=== PATIENT | male | born 1980 ===

== ENCOUNTER 2018-06-11 05:44 | Day surgery (SDC) | payer OTHER ==
[2018-06-11] MEDS ORDERED: Propofol 10 mg/ml Inj (20 ML) ONE (07:46)
[2018-06-11] MEDS ORDERED: Midazolam 2 MG/2 ML VIAL ONE (07:46)
[2018-06-11] MEDS ORDERED: Succinylcholine Chloride 20 mg/ml Syr (5 ml) IV ONE (07:47)
[2018-06-11] MEDS ORDERED: ceFAZolin IV 1 gm in Dextrose 1 GM/50 ML BAG IVPB ONE (07:48)
[2018-06-11] MEDS ORDERED: Lidocaine/Epinephrine 1% 1:100000 10 ML IJ ONE (07:48)
[2018-06-11] MEDS ORDERED: Oxymetazoline 0.05% Nasal Spray (30 ml) NS ONE (07:48)
[2018-06-11] MEDS ORDERED: EPINEPHrine 1:1000 Nasal Sol(30mL) ONE (07:49)
[2018-06-11] MEDS ORDERED: White Petrolatum/Mineral Oil Ophth Oint(3.5 gm) ONE (07:49)
[2018-06-11] MEDS ORDERED: Neostigmine Methylsulfate 3mg/3ml Syringe IV ONE (08:31)
[2018-06-11] MEDS ORDERED: Atropine 0.4 mg/ml Inj (1 mL) ONE (08:31)
[2018-06-11] MEDS ORDERED: Acetaminophen-Codeine 300/30 mg Tab PO PRN (08:37)
[2018-06-11] MEDS ORDERED: Dextrose 5%/0.45% NS 1,000 ML IV SCH (08:45)
[2018-06-11] MEDS ORDERED: Lactated Ringer's 1,000 ML IV SCH (09:00)
[2018-06-11] MEDS ORDERED: HYDROmorphone 0.5 mg/0.5 ml ISec IVP PRN (09:23)
[2018-06-11 11:20] VITALS: BP 166/85; PULSE 85; RESP 18; TEMP 97; O2SAT 97
--- NOTE | 2018-06-11 19:50 | OP ---
PROCEDURE DATE: 06/11/2018 PREOPERATIVE DIAGNOSES: Deviated septum, large inferior turbinates. POSTOPERATIVE DIAGNOSES: Deviated septum, large inferior turbinates. PROCEDURES: Septoplasty, bilateral inferior turbinate reduction. SIGNIFICANT FINDINGS: Deviated septum, large turbinates. DESCRIPTION OF PROCEDURE: The patient was brought into the room, placed in supine position, anesthesia was initiated through an ET tube. The patient was draped in usual manner. The adrenaline-soaked pledgets were inserted into the nasal cavity where they remained there for at least five minutes and removed. The septum was injected with lidocaine with epinephrine on both sides. A Marty incision was made on the left and mucoperichondrial flap was raised on the left. The vertical incision was made in the cartilage leaving a 1.5 cm anterior and superior strut and mucoperichondrial flap was raised on the other side. Deviated portion of the bone and cartilage were removed using forceps and chisel. A quilting suture was used to suture the two flaps together and close the Marty incision. A 0-degree scope was inserted into the nasal cavity. The inferior turbinates were reduced in size, going from an inferior to superior, anterior to posterior direction on both sides, first on the left and then on the right. Bleeding was controlled using suction cautery. Stents were placed. The patient was taken off anesthesia and taken to recovery room in stable manner. Hunter Shaffer MD
== END 2018-06-11 11:29 | disposition home or self-care (01) ==
LOC: C.SDS 05:44
PROVIDERS: ATTEND Otolaryngology
DX: J34.2 Deviated nasal septum (principal); J34.3 Hypertrophy of nasal turbinates
CPT/HCPCS: 30140; 30520; 82948; 88304; J0461; J0690; J1170; J2250; J2405; J2704; J2710; J3010